=== PATIENT | male | born 1990 | race Hispanic/Latino ===

== ENCOUNTER 2020-10-10 10:00 | Day surgery (SDC) | payer OTHER ==
[~2020-10-10 10:00] MED LIST: ACETAMINOPHEN 500 MG TAB PO SCH; LACTATED RINGERS 1,000 ML IV SCH; MIDAZOLAM 2 MG/2 ML INJ IV NR
[2020-10-10] MEDS ORDERED: ONDANSETRON 4 MG/2 ML INJ IV PRN (10:56)
--- NOTE | 2020-10-10 10:56 | Anesthesia Consultation ---
Anesthesia Consult and Med Hx Date of service: 10/10/20 - Airway Anesthetic Teeth Evaluation: Good ROM Head & Neck: Adequate Mental/Hyoid Distance: Adequate Mallampati Class: Class II Intubation Access Assessment: Probably Good - Pulmonary Exam CTA: Yes - Cardiac Exam Cardiac Exam: RRR - Pre-Operative Health Status ASA Pre-Surgery Classification: ASA1 Proposed Anesthetic Plan: General - Pulmonary Hx Smoking: No Hx Respiratory Symptoms: No - Cardiovascular System Hx Hypertension: No - Central Nervous System CVA: No Hx Psychiatric Problems: Yes - Endocrine Hx Renal Disease: No Hx Liver Disease: No Hx Insulin Dependent Diabetes: No Hx Non-Insulin Dependent Diabetes: No Hx Thyroid Disease: No - Other Systems Hx Obesity: No - Additional Comments Anesthesia Medical History Comments: No hx anesthetic complications.
--- NOTE | 2020-10-10 10:56 | Anesthesia Day of Surgery ---
Anesthesia Day of Surgery - Day of Surgery Patient Examined: Yes Patient H&P Reviewed: Yes Patient is NPO: Yes
[2020-10-10] MEDS ORDERED: BUPIVACAINE/PF (0.25%) 2.5 MG/ML 30 ML VIAL INFILTRATI ONE (11:04)
[2020-10-10] MEDS ORDERED: LIDOCAINE (1%) 10 MG/1 ML VIAL 20 ML MDV ONE (11:04)
[2020-10-10] MEDS ORDERED: ceFAZolin/STERILE WATER 2 GM/20 ML SYRINGE IV NR (11:30)
[2020-10-10] MEDS ORDERED: propofoL 200 MG/20 ML VIAL IV ONE (11:46)
[2020-10-10] MEDS ORDERED: dexAMETHasone 20 MG/5 ML VIAL ONE (11:55)
[2020-10-10] MEDS ORDERED: ONDANSETRON 4 MG/2 ML INJ ONE (11:55)
[2020-10-10] MEDS ORDERED: KETOROLAC 30 MG/1 ML INJ ONE (11:55)
[2020-10-10] MEDS ORDERED: fentaNYL 100 MCG/2 ML INJ ONE (12:19)
[2020-10-10] MEDS ORDERED: SODIUM CHLORIDE 0.9% IRR 1,500 ML BOTTLE IR ONE (12:29)
[2020-10-10] MEDS ORDERED: BACITRACIN ZINC OINT 28.4 GM TP ONE (13:12)
--- NOTE | 2020-10-10 13:33 | Post Operative Note ---
Date of procedure: 10/10/20 Pre-op diagnosis: huge hydrocele Post-op diagnosis: same Findings: as above Procedure: as above Anesthesia: GETA Surgeon: TAM PACE Estimated blood loss: minimal Pathology: list (sac) Specimen disposition: to lab Condition: stable Disposition: PACU
--- NOTE | 2020-10-10 13:36 | Discharge Summary ---
Short Stay Discharge Plan Activity: other (no straining ) Weight Bearing Status: Full Weight Bearing Diet: regular, low fat Wound: change dressing Special Instructions: other (change dressing daily ) Durable Medical Equipment Needed Upon Discharge: other Follow up with: SAMUEL GUZMAN MD [Primary Care Provider] - 7 Days TAM PACE MD [Staff Physician] - 7 Days
[2020-10-10] MEDS: HYDROmorphone 1 MG/1 ML INJ IV PRN ×2 (13:45→13:55)
--- NOTE | 2020-10-10 13:48 | Operative Report ---
PREOPERATIVE DIAGNOSIS: Massively large left hydrocele. POSTOPERATIVE DIAGNOSIS: Massively large left hydrocele. PROCEDURES: Left scrotal exploration, left hydrocelectomy. SURGEON: Joshua Mae MD. ANESTHESIA: General. FINDINGS: This is a gentleman who has over a 15 cm mass extending to the groin. It appears to be all fluid. Testis appeared normal. He now presents for treatment. DESCRIPTION OF PROCEDURE: The patient was brought to the operative room and placed on the operating table. Following induction of anesthesia, placed in supine position, prepped and draped in usual sterile fashion. An oblique incision was made midway between this huge mass. It was carried through the skin and thickened scrotal layers. I suspect this has been there for years. Very thickened vascular layers were cauterized and small vessels were tied as needed. Once we got down to the tunica vaginalis this inferiorly and the surrounding fascia was dissected free. The mass was delivered through the incision. Surrounding cremasteric and fascial fibers were clearly visualized and dissected free. We opened the mass and a liter of fluid was obtained. It was clear. The testis was normal. Large amount of the sac was excised with the cautery and oversewn with 2-0 and 3-0 chromic. The patient tolerated the procedure well. Hemostasis was excellent. A 1-inch Buckingham was placed in dependent portion of the scrotum. Fascia was approximated with 2-0 and 3-0 chromic, skin with 3-0 chromic. The patient tolerated the procedure well. Minimal blood loss. He was brought to recovery in stable condition. JOB# [id number] JULIANA/LENKA
[2020-10-10 15:29] VITALS: BP 133/84
--- NOTE | 2020-10-10 16:54 | Post Anesthesia Evaluation ---
- Post Anesthesia Evaluation Patient Participated: Yes Airway Patent: Yes Stable Respiratory Function: Yes Nausea/Vomiting: No Temp > 96.8F: Yes Pain Manageable: Yes Adequeate Hydration: Yes Anesthesia Complications: No
== END 2020-10-10 15:25 | disposition home or self-care (01) ==
LOC: OR 10:00
PROVIDERS: ATTEND Urology
DX: N43.2 Other hydrocele (principal); F41.9 Anxiety disorder, unspecified; Z72.89 Other problems related to lifestyle; Z98.890 Other specified postprocedural states; Z79.899 Other long term (current) drug therapy
CPT/HCPCS: 55040; 88302; J0690; J1100; J1170; J1885; J2250; J2405; J2704; J3010; J7120